=== PATIENT | male | born 1980 | race Caucasian/White ===

== ENCOUNTER 2019-01-29 16:57 | Inpatient (IN) | payer BC ==
[~2019-01-29] VITALS: Ht 177.8 cm; Wt 95.3 kg
[2019-01-29] MEDS ORDERED: KETOROLAC TROMETHAMINE 30 MG/ML VIAL IV ONE (17:13)
[2019-01-29] MEDS ORDERED: SODIUM CHLORIDE 0.9% 1000ML 1,000 ML IV ONE (17:15)
[2019-01-29] MEDS ORDERED: KETOROLAC TROMETHAMINE 30 MG/ML VIAL ONE (17:21)
[2019-01-29 17:32] LABS: BASOPHILS % 0.3 % (0.0-1.0); EOSINOPHILS % 0.1 % (0.0-6.0); HEMATOCRIT 42.7 % (38.2-49.6); HEMOGLOBIN 15.3 g/dL (14.0-18.0); LYMPHOCYTES # (AUTO) 0.9 (1.0-3.2); LYMPHOCYTES % 8.7 % (18.0-39.1); MEAN CORPUSCULAR HEMOGLOBIN 29.7 pg (28-32); MEAN CORPUSCULAR HGB CONC 35.8 g/dL (31-35); MEAN CORPUSCULAR VOLUME 82.8 fL (81-99); MONOCYTES # (AUTO) 0.6 (0.2-0.8); MONOCYTES % 6.3 % (4.4-11.3); NEUTROPHILS # (AUTO) 8.3 (2.1-6.9); NEUTROPHILS % 84.2 % (38.7-80.0); PLATELET COUNT 246 x10e3/uL (140-360); RED BLOOD COUNT 5.16 x10e6/uL (4.3-5.7); RED CELL DISTRIBUTION WIDTH 12.6 % (11.7-14.4)
[2019-01-29 17:36] LABS: BILIRUBIN,URINE NEGATIVE (NEGATIVE); CLARITY,URINE SL CLOUDY (CLEAR); COLOR,URINE YELLOW (YELLOW); KETONES,URINE 1+ (NEGATIVE); LEUKOCYTE ESTERASE ,URINE NEGATIVE (NEGATIVE); NITRITE,URINE NEGATIVE (NEGATIVE); PROTEIN,URINE DIPSTICK TRACE (NEGATIVE); URINE UROBILINOGEN 0.2 mg/dL (0.2 - 1)
[2019-01-29 17:48] LABS: AMORPHOUS SEDIMENT,URINE MODERATE (FEW); ANION GAP 13.5 mmol/L (8-16); BACTERIA,URINE MODERATE /HPF; BLOOD UREA NITROGEN 13 mg/dL (7-26); BUN/CREATININE RATIO 11 (6-25); CALCIUM 9.9 mg/dL (8.4-10.2); CARBON DIOXIDE 25 mmol/L (22-29); CHLORIDE 101 mmol/L (98-107); CREATININE, SERUM 1.21 mg/dL (0.72-1.25); EPITHELIAL CELLS,URINE FEW /LPF; EST GLOMERULAR FILTRATION RATE > 60 ML/MIN (60-); GLUCOSE 95 mg/dL (74-118); POTASSIUM 3.5 mmol/L (3.5-5.1); SODIUM 136 mmol/L (136-145); WBC,URINE (MAN) 0-5 /HPF (0-5)
--- NOTE | 2019-01-29 20:08 | Diagnostic Imaging Report ---
EXAM: CT Abdomen and Pelvis WITHOUT contrast INDICATION: ^kidney stone ^[id number] ^1810 COMPARISON: None. TECHNIQUE: Abdomen and pelvis were scanned utilizing a multidetector helical scanner from the lung base to the pubic symphysis without administration of IV contrast. Absence of intravenous contrast decreases sensitivity for detection of focal lesions and vascular pathology. Coronal and sagittal reformations were obtained. Renal stone protocol was performed. Dose modulation, iterative reconstruction, and/or weight based adjustment of the mA/kV was utilized to reduce the radiation dose to as low as reasonably achievable. IV CONTRAST: None. ORAL CONTRAST: None RADIATION DOSE: Total DLP: 727.43 mGy*cm Estimated effective dose: (DLP x 0.015 x size factor) mSv COMPLICATIONS: None FINDINGS: LINES and TUBES: None. LOWER THORAX: Lung bases clear. Heart size normal. HEPATOBILIARY: No focal hepatic lesions. No biliary ductal dilation. GALLBLADDER: No radio-opaque stones or sludge. No wall thickening. SPLEEN: No splenomegaly. PANCREAS: No focal masses or ductal dilatation. ADRENALS: No adrenal nodules KIDNEYS/URETERS: There is mild left hydronephrosis and hydroureter down to a 5 mm calculus in the distal left ureter about 2 cm above the UVJ. No intrarenal calculi are seen. No contour deforming cystic or solid mass lesions. There is mild perinephric stranding on the left. GI TRACT: No abnormal distention, wall thickening, or evidence of bowel obstruction. Appendix is normal. PELVIC ORGANS/BLADDER: Urinary bladder appears unremarkable. The prostate is mildly prominent measuring 5.7 cm transversely. Prostatic calcifications are seen. No discrete abnormal mass or fluid collection in the pelvis. LYMPH NODES: No dominant lymph node mass is seen in the abdomen, retroperitoneum or pelvis. A small rounded mass adjacent to the spleen is compatible with a splenule. VESSELS: Unenhanced aortoiliac vessels unremarkable. PERITONEUM / RETROPERITONEUM: No pneumoperitoneum or generalized ascites. BONES: No acute or suspicious bony lesions. SOFT TISSUES: Superficial surrounding soft tissue shows apparent lateral femoral hernias containing fat, larger on the right. IMPRESSION: 1. 5 mm partially obstructing calculus in the distal left ureter producing mild left hydronephrosis and hydroureter and stranding about the left kidney. Staff: Waldemar Signed by: Dr. Lucas Medeiros M.D. on 01/29/2019 8:04 PM
[2019-01-29] MEDS ORDERED: HYDROMORPHONE 1MG/1ML INJ IV PRN (20:30)
[2019-01-29] MEDS ORDERED: ONDANSETRON HCL INJ 2MG/ML 2ML 2 MG/ML VIAL IV PRN (20:30)
[2019-01-29] MEDS ORDERED: CEFTRIAXONE SOD 1 GM/NS 50 ML 50 ML IV ONE (20:30)
--- OUTSIDE RECORDS SUMMARY | 2019-01-29 21:16 | XMS REPORT ---
Author Author [facility] Address Unknown Phone Unavailable Care Team Providers Care Hospital Coordinator Name Role Phone Cadence LAZO Unavailable Unavailable Problems This patient has no known problems. Allergies, Adverse Reactions, Alerts This patient has no known allergies or adverse reactions. Medications This patient has no known medications. Results Test Description Test Time Test Comments Text Results Atomic Results Result Comments CT ABDOMEN/PELVIS WO 2019-01-29 19:55:[address] [address] Patient Name: BRUCE MORRELL MR #: [id number] : 1980 Age/Sex: 38/M Req #: [id number] Adm Physician: Ordered by: DESIREE ELIZALDE NP Report #: [id number] Location: ER Room/Bed: Procedure: [id number] CT/CT ABDOMEN/PELVIS WO Exam Date: 01/29/19 Exam Time: 1809 REPORT STATUS: Signed EXAM: CT Abdomen and Pelvis WITHOUT contrast INDICA TION: kidney stone [id number] COMPARISON: None. TECHNIQUE: Abdomen and pelvis were scanned utilizing a multidetector helical scanner from the lung base to the pubic symphysis without administration of IV contrast. Absence of intravenous contrast decreases sensitivity for detection of focal lesions and vascular pathology. Coronal and sagittal reformations were obtained. Renal stone protocol was performed. Dose modulation, iterative reconstruction, and/or weight based adjustment of the mA/kV was utilized to reduce the radiation dose to as low as reasonably achievable. IV CONTRAST: None. ORAL CONTRAST: None RADIATION DOSE: Total DLP: 727.43 mGy*cm Estimated effective dose: (DLP x 0.015 x size factor) mSv COMPLICATIONS: None FINDINGS: LINES and TUBES: None. LOWER THORAX: Lung bases clear. Heart size normal. HEPATOBILIARY: No focal hepatic lesions. No biliary ductal dilation. GALLBLADDER: No radio-opaque stones or sludge. No wall thickening. SPLEEN: No splenomegaly. PANCREAS: No focal masses or ductal dilatation. ADRENALS: No adrenal nodules KIDNEYS/URETERS: There is mild left hydronephrosis and hydroureter down to a 5 mm calculus in the distal left ureter about 2 cm above the UVJ. No intrarenal calculi are seen. No contour deforming cystic or solid mass lesions. There is mild perinephric stranding on the left. GI TRACT: No abnormal distention, wall thickening, or evidence of bowel obstruction. Appendix is normal. PELVIC ORGANS/BLADDER: Urinary bladder appears unremarkable. The prostate is mildly prominent measuring 5.7 cm transversely. Prostatic calcifications are seen. No discrete abnormal mass or fluid collection in the pelvis. LYMPH NODES: No dominant lymph node mass is seen in the abdomen, retroperitoneum or pelvis. A small rounded mass adjacent to the spleen is compatible with a splenule. VESSELS: Unenhanced aortoiliac vessels unremarkable. PERITONEUM / RETROPERITONEUM: No pneumoperitoneum or generalized ascites. BONES: No acute or suspicious bony lesions. SOFT TISSUES: Superficial surrounding soft tissue shows apparent lateral femoral hernias containing fat, larger on the right. IMPRESSION: 1. 5 mm partially obstructing calcul us in the distal left ureter producing mild left hydronephrosis and hydroureter and stranding about the left kidney. Staff: Waldemar Signed by: Dr. Jamaica Mari M.D. on 01/29/2019 8:04 PM Dictated By: JAMAICA MARI MD 03 Transcribed By: ORA on 01/29/192003 COPY TO: DESIREE ELIZALDE NP
[2019-01-29 21:18] VITALS: BP 147/89
--- NOTE | 2019-01-29 21:18 | NUR ---
PT ARRIVED ON THE UNIT VIA AMBULATORY AT 2117. PT IS A&OX3. RESPIRATION IS EVEN AND UNLABORED, NO DISTRESS NOTED. PT ORIENTED TO THE ROOM, BED IN LOWEST POSITION, LOCKED, AND CALL LIGHT WITHIN REACH. ADMISSION AND HEAD TO TOE ASSESSMENT COMPLETE. WILL CONTINUE TO MONITOR.
[2019-01-29] MEDS: SODIUM CHLORIDE 0.9% 1000ML 1,000 ML IV SCH (22:29)
[2019-01-30] VITALS (10 sets, daily range): BP systolic 118–138; BP diastolic 69–87
[2019-01-30 05:51] LABS: BASOPHILS % 0.7 % (0.0-1.0); EOSINOPHILS # (AUTO) 0.1 (0.0-0.4); HEMATOCRIT 39.2 % (38.2-49.6); HEMOGLOBIN 13.5 g/dL (14.0-18.0); LYMPHOCYTES # (AUTO) 1.5 (1.0-3.2); LYMPHOCYTES % 28.1 % (18.0-39.1); MEAN CORPUSCULAR HEMOGLOBIN 29.3 pg (28-32); MEAN CORPUSCULAR HGB CONC 34.4 g/dL (31-35); MONOCYTES # (AUTO) 0.4 (0.2-0.8); MONOCYTES % 8.1 % (4.4-11.3); NEUTROPHILS # (AUTO) 3.3 (2.1-6.9); NEUTROPHILS % 60.7 % (38.7-80.0); PLATELET COUNT 207 x10e3/uL (140-360); RED BLOOD COUNT 4.61 x10e6/uL (4.3-5.7); RED CELL DISTRIBUTION WIDTH 12.8 % (11.7-14.4)
[2019-01-30] MEDS: SODIUM CHLORIDE 0.9% 1000ML 1,000 ML IV SCH ×3 (06:06→21:42)
[2019-01-30 06:10] LABS: ANION GAP 12.8 mmol/L (8-16); BLOOD UREA NITROGEN 11 mg/dL (7-26); BUN/CREATININE RATIO 12 (6-25); CARBON DIOXIDE 26 mmol/L (22-29); CHLORIDE 108 mmol/L (98-107); CREATININE, SERUM 0.91 mg/dL (0.72-1.25); EST GLOMERULAR FILTRATION RATE > 60 ML/MIN (60-); GLUCOSE 89 mg/dL (74-118); POTASSIUM 3.8 mmol/L (3.5-5.1); SODIUM 143 mmol/L (136-145)
--- NOTE | 2019-01-30 07:00 | NUR ---
RECEIVED AM REPORT FROM NURSE, MORNING ROUNDS DONE. PT IS ALERT RESTING IN BED, NO S/S OF DISTRESS. CALL LIGHT WITHIN REACH, INSTRUCTED TO CALL NURSE FOR HELP. IS AT THE BEDSIDE. Addendum: 01/30/19 at 0728 by Julieta Padilla RN PT IS SLEEPING, NO S/S OF DISTRESS. CALL LIGHT IS WITHIN REACH, SIDE RAILS UP. IVF ARE RUNNING AT 125/HR IN L AC. SITE IS ASYMPTOMATIC
--- NOTE | 2019-01-30 12:49 | Consultation ---
DATE OF CONSULTATION: 01/30/2019 Urologic Consultation Note Consultation is called by the emergency room, Dr. Aristides Mackay. CHIEF COMPLAINT/REASON FOR CONSULTATION: Left ureteral calculus. HISTORY OF PRESENT ILLNESS: Mr. Sanchez is a 38-year-old male, patient of mine, with a 5 mm obstructing left ureteral calculus with a failed trial passage and failed outpatient management. His pain has been uncontrollable by oral narcotics. He presents to the emergency room for pain control. Denied fevers. No chills no nausea or vomiting. PAST MEDICAL HISTORY: As above. MEDICATIONS: Please see MAR. ALLERGIES: NKDA. SOCIAL HISTORY: Denied smoking or drinking. FAMILY HISTORY: Denied urologic stones or malignancies. REVIEW OF SYSTEMS: Noncontributory other than problems mentioned above for 12 organ systems. PHYSICAL EXAMINATION: GENERAL: Middle-aged male, in no distress. VITAL SIGNS: Temperature 97, pulse 70, respirations 20, and blood pressure 118/69. HEENT: Sclerae are anicteric. NECK: Supple. BACK: Without costovertebral tenderness bilaterally. ABDOMEN: Soft, it is nontender, it is nondistended. There is no palpable mass, no palpable hernias, no palpable lymphadenopathy. : Normal male external genitalia. EXTREMITIES: No edema. Moves all four extremities. PSYCH: Alert and mood appropriate. SKIN: Intact. Normal color. PERTINENT LABORATORY DATA: CT scan revealing a 5 mm left ureterovesical junction calculus with hydronephrosis. Urinalysis, 5-10 reds, 0 whites, positive bacteria. Hemoglobin 13, hematocrit 39, platelet count 207,000, and white cell count 5000. Sodium 136, potassium 3.5, chloride 101, bicarb 25, BUN 13, creatinine 1.2, and glucose 95. IMPRESSION: 1. Left ureteral calculus. 2. Left hydronephrosis. 3. Microscopic hematuria. 4. Anemia. 5. Hypokalemia. 6. Renal colic. PLAN: We would employ a brief trial of passage. Should this fail, the patient will likely need stenting versus ureteroscopy. Thank you for allowing me to participate in the care of your patient. We will be happy to follow along with you. MD TAWNYA Hays/MODL :35:12 /[id number] cc: Aristides Mackay MD
--- NOTE | 2019-01-30 14:59 | Diagnostic Imaging Report ---
Exam: KUB - 2 views Clinical History: Renal calculi Comparison: CT abdomen pelvis of 01/29/2019 Findings: 5 mm calcific density in the left pelvis likely corresponds with the 5 mm distal ureteral calculus seen on the CT of 01/29/2019. No other radiographically apparent renal calculi. Nonobstructive bowel gas pattern. The osseous structures appear unremarkable. Impression: 5 mm calcific density in the left pelvis likely corresponds with the 5 mm distal ureteral calculus seen on the CT of 01/29/2019. Signed by: Bree Camacho MD on 01/30/2019 2:56 PM
--- NOTE | 2019-01-30 15:30 | NUR ---
Visit made by the Spiritual Care Department Pastoral Visitor, Gemini Rizvi. PV provided pastoral presence, prayer, hospitality, and supportive listening. Pastoral Visitor informed pt/family of the scope of [employer] and availability. [employer] Vehicle Officer Spiritual Care Department O: [phone] Pager: [phone] ([phone] number calling from)
--- NOTE | 2019-01-30 16:45 | NUR ---
Nutrition Screen Note RD Recommendation for Physician: -Continue diet as ordered Plan of Care: RD following, monitoring for tolerance and adequacy Nutrition reason for involvement: Nutrition Risk Trigger MST Primary Diagnose(s): Left ureteral calculus. PMH: none indicated Ht: 70in Wt: 210lb BMI: 30.1kg/m2 IBW: 166lb +/- 10% RD Assessment: (01/30) Chart reviewed. Labs and meds reviewed. 38yo M, who was admitted for left ureteral calculus. Visited pt in the room. Pt reported good appetite prior and during hospital stay. Pt denied any nausea or vomiting. No chewing or swallowing difficulty noted. Stable weight. Current diet is appropriate and adequate. Current Diet: regular diet Malnutrition Evaluation (01/30/2019) The patient does not meet criteria for a specified degree of malnutrition at this time. Will re-evaluate at follow-up as appropriate. Diet Education Needs Assessment: Diet education not indicated. Nutrition Care Level: low Signed: Marlys Painting, MS, RD, LD
--- NOTE | 2019-01-30 19:08 | NUR ---
PT IS RESTING IN BED. RESPIRATION IS EVEN AND UNLABORED, NO DISTRESS NOTED. BED IN THE LOWEST POSITION, LOCKED, AND CALL LIGHT WITHIN REACH. WILL CONTINUE TO MONITOR.
[2019-01-31] VITALS (9 sets, daily range): BP systolic 113–151; BP diastolic 75–90
[2019-01-31] MEDS: SODIUM CHLORIDE 0.9% 1000ML 1,000 ML IV SCH ×2 (05:45→16:59)
--- NOTE | 2019-01-31 06:50 | NUR ---
Received patient lying in bed with eyes open. Alert and oriented x3. Respiration even and unlabored without SOB. Denies pain. Call light within reach.
[2019-01-31] MEDS ORDERED: IOPAMIDOL 610MG/1ML 300 MG/ML VIAL IV ONE (11:47)
--- NOTE | 2019-01-31 11:55 | NUR ---
IV LINE TO LEFT AC LEAKING, DCD LINE WITH TIP INTACT, PRESSURE APPLIED TO SITE, NO BLEEDING NOTED.
--- NOTE | 2019-01-31 13:01 | NUR ---
PATIENT OFF THE UNIT FOR PROCEDURE AT THIS TIME.
[2019-01-31] MEDS ORDERED: PROPOFOL IV EMULSION 10 MG/ML 20 ML VIAL ONE (14:19)
[2019-01-31] MEDS ORDERED: SEVOFLURANE INHAL SOLN 250 ML PEN BTL ONE (14:19)
[2019-01-31] MEDS ORDERED: LIDOCAINE HCL 2% LOCAL INJ 5 ML SDV VIAL INJ ONE (14:19)
[2019-01-31] MEDS ORDERED: ONDANSETRON HCL INJ 2MG/ML 2ML 2 MG/ML VIAL ONE (14:19)
[2019-01-31] MEDS ORDERED: DEXAMETHASONE SOD PHOS INJ 4 MG/ML VIAL ONE (14:19)
--- NOTE | 2019-01-31 14:48 | NUR ---
Received patient transported back from OR. Patient stable, alert and oriented. Respiration even and unlabored without SOB. Call light within reach.
[2019-01-31] MEDS ORDERED: MIDAZOLAM HCL 2 MG/2 ML VIAL ONE (15:16)
[2019-01-31] MEDS ORDERED: FENTANYL CITRATE/PF 100MCG/2 ML INJ ONE (15:16)
--- NOTE | 2019-01-31 19:26 | NUR ---
Patient awake, alert. Respiration even and unlabored. Report given to deputy commissioner. Call light in reach.
--- NOTE | 2019-01-31 19:27 | Operative Report ---
DATE OF PROCEDURE: 01/31/2019 SURGEON: Live Choudhary MD PREOPERATIVE DIAGNOSES: Left ureteral calculus, left hydronephrosis, hematuria. POSTOPERATIVE DIAGNOSES: Left ureteral calculus, left hydronephrosis, hematuria with left ureteral stricture and urethral stricture. PROCEDURES: 1. Cystourethroscopy with urethral calibration and dilation of stricture (entirely separate procedure for urethral stricture disease). 2. Cystourethroscopy with right ureteral catheterization and right retrograde pyelogram (entirely separate procedure for microscopic hematuria). 3. Left-sided ureteroscopy with dilation of ureteral stricture (entirely separate procedure for left ureteral stricture). 4. Cystoscopy insertion of left indwelling stent (entirely separate procedure for diagnosis of left hydronephrosis). 5. Supervision of fluoroscopy for ureteroscopy and dilation portions and supervision of fluoroscopy for stent insertion portions). 6. Interpretation of retrograde pyelography. ANESTHESIA: General. ESTIMATED BLOOD LOSS: Minimal. COMPLICATION: None. INDICATIONS: Mr. Sanchez is a very pleasant 38-year-old male patient with a history of a left ureteral calculi and I had a long discussion about alternatives, risks, and benefits of doing nothing, shock close wave lithotripsy, ureteroscopy, percutaneous surgery or open surgery. He voiced understanding of the options, alternatives, risks, and benefits and elected to proceed. PROCEDURE IN DETAIL: After informed consent was obtained, the patient was taken to the operative suite, placed supine on the operating table. He underwent general anesthesia by the Anesthesia Service. He was placed in the dorsal lithotomy position, sterilely prepped and draped in sterile fashion for cystoscopy. A 21-Belizean cystoscope was inserted per urethra. There was a bulbar urethral stricture, calibrated at approximately 18-Belizean, dilated with the scope, there was trilobar prostatic hypertrophy. Panendoscopy of bladder revealed trabeculation. No tumors. No stones. Both ureteral orifices were in normal anatomic location and position, and were seen to efflux clear urine. Bilateral retrograde pyelogram was performed. On the right was normal and left revealed a very dense blockage with a 5 mm distal ureteral calculus with moderate difficulty. A guidewire was inserted in left side. A 5-Belizean open-ended catheter was advanced over this. A brisk hydronephrotic drip was seen. At this time, a guidewire was placed. Ureteroscope was advanced until distal impacted, area of the stone could be seen and was scarred down and despite multiple times dilate and physician practice administrator avulsion, we terminated this procedure. Utilizing a graduated 7-Belizean stent, a 7 x 28 cm stent was deployed with a coil in the renal pelvis and a coil in the bladder after first dilating the stricture, return for definitive management of stone. The bladder was drained. The patient was awakened from anesthesia and transported to the recovery room in excellent condition. Supervision of fluoroscopy and interpretation of retrograde pyelography: I was present for the entire procedure and supervised fluoroscopy. There was no radiologist present. Attention was turned to the left and right ureteral orifices, which were catheterized with 5-Belizean open-ended catheters. On the right side it was delicate ureter, delicate pelvocaliceal systems. On the left side distal 5 x 6 mm ureteral calculus proximal hydronephrosis, ureteral stricture and postoperative views on left side revealed stent in adequate position. MD TAWNYA Hays/DIETER /[id number]
--- NOTE | 2019-01-31 23:21 | NUR ---
PATIENT ARRIVED FROM MED-SURG 3 ROOM 287 TO ROOM 107 ON WHEELCHAIR. SAFELY TRANSFERRED FROM TO BED. IV NS CONTINUES AT 125 ML/HR. PATIENT IS A/0X4 WITH NO PAIN EXCEPT DURING VOIDING. THE PATIENT IS TO BE D/C TOMORROW AFTER MEDICAL MANAGEMENT CLEARANCE.
[2019-02-01] MEDS: SODIUM CHLORIDE 0.9% 1000ML 1,000 ML IV SCH ×2 (00:13→04:22)
[2019-02-01 04:43] VITALS: BP 121/68
[2019-02-01] MEDS ORDERED: TYLENOL WITH C1 EACH PO (07:11)
[2019-02-01 07:42] VITALS: BP 135/78
--- NOTE | 2019-02-01 07:42 | NUR ---
MD NAJERA AND RASHEL DC PT DISCHARGE INSTRUCTIONS AND PRESCRIPTIONS GIVEN. PT VERBALIZED UNDERSTANDING IV DC PRESSURE DRESSING APPLIED AND TAPED PT IS NOW WAITING FOR RIDE HOME
--- NOTE | 2019-02-02 07:56 | Discharge Summary ---
DISCHARGE DIAGNOSES: 1. Left kidney stone 5 mm, status post stent. 2. Renal colic. HISTORY OF PRESENT ILLNESS AND HOSPITAL COURSE: See hospital chart for full details. The patient is a gentleman, who presented with left renal colic pain, where he was found to have a 5 mm obstructing kidney stone with some hydronephrosis. He was seen by Dr. Choudhary, who gave a chance of voiding past, but unfortunately the patient was not able to pass the stones. He went to the OR by Dr. Choudhary, who put a stent in place when he was not able to get the stone out. So, after the stent was placed, the patient did well postoperatively with minimal pain. He was discharged home to follow up with Dr. Choudhary in 1 to 2 weeks to finish up the stone removal as an outpatient. Please see hospital chart for full details. MD CHRISTIAN Stanton/DIETER /[id number]
[2019-02-08] MEDS ORDERED: MYRBETRIQ50 MG PO (10:09)
== END 2019-02-01 08:46 | disposition home or self-care (01) | DRG 661 ==
LOC: ER 16:57 → ERHOLD 21:13 → MED/SURG3 21:19 → MED/SURG 01-31 22:49
PROVIDERS: ADMIT Internal Medicine; ATTEND Internal Medicine
PROC: BT141ZZ Fluoroscopy of Kidneys, Ureters and Bladder using Low Osmolar Contrast (ICD-10-PCS; 2019-01-31)
PROC: 0T7D8ZZ Dilation of Urethra, Via Natural or Artificial Opening Endoscopic (ICD-10-PCS; 2019-01-31)
PROC: 0T768ZZ Dilation of Right Ureter, Via Natural or Artificial Opening Endoscopic (ICD-10-PCS; principal; 2019-01-31 14:00)
PROC: 0T778DZ Dilation of Left Ureter with Intraluminal Device, Via Natural or Artificial Opening Endoscopic (ICD-10-PCS; 2019-01-31 14:00)
DX: N13.2 Hydronephrosis with renal and ureteral calculous obstruction (principal); D64.9 Anemia, unspecified; E87.6 Hypokalemia; R31.29 Other microscopic hematuria; N35.919 Unspecified urethral stricture, male, unspecified site; F41.9 Anxiety disorder, unspecified
CPT/HCPCS: 36415; 74018; 74176; 74420; 80048; 81001; 85025; 99284; C1758; C2617; J0696; J1100; J1170; J1885; J2001; J2250; J2405; J3010; J7030

== ENCOUNTER → 2019-02-09 | Day surgery (SDC) | payer BC ==
[~2019-02-09] MED LIST: CEFTRIAXONE SOD 1 GM/NS 50 ML 50 ML IV ONE; DEXAMETHASONE SOD PHOS INJ 4 MG/ML VIAL ONE; FENTANYL CITRATE/PF 100MCG/2 ML INJ ONE; IOPAMIDOL 610MG/1ML 300 MG/ML VIAL IV ONE; LIDOCAINE HCL 2% LOCAL INJ 5 ML SDV VIAL INJ ONE; MIDAZOLAM HCL 2 MG/2 ML VIAL ONE; MYRBETRIQ50 MG PO; ONDANSETRON HCL INJ 2MG/ML 2ML 2 MG/ML VIAL ONE; PROPOFOL IV EMULSION 10 MG/ML 20 ML VIAL ONE; SEVOFLURANE INHAL SOLN 250 ML PEN BTL ONE; TYLENOL WITH C1 EACH PO
[2019-02-09 10:15] VITALS: BP 128/86
--- NOTE | 2019-02-09 13:46 | Operative Report ---
DATE OF PROCEDURE: 02/09/2019 SURGEON: Live Choudhary MD PREOPERATIVE DIAGNOSES: 1. Indwelling left ureteral stent. 2. Left ureteral calculus. POSTOPERATIVE DIAGNOSES: 1. Indwelling left ureteral stent. 2. Left ureteral calculus. PROCEDURES: 1. Cystourethroscopy with complicated left ureteral stent removal (entirely separate procedure for complicated secondary to BPH). 2. Left-sided ureteroscopy with laser lithotripsy (entirely separate procedure for ureteral stricture and left ureteral calculus). 3. Left-sided ureteroscopy with stone extraction (entirely separate procedure with explicit purpose of sending the stones for analysis, not required for laser lithotripsy). 4. Supervision of fluoroscopy for ureteroscopy portion and stent removal portion. ANESTHESIA: General. ESTIMATED BLOOD LOSS: Minimal. COMPLICATIONS: None. INDICATIONS: Mr. Sanchez is a very pleasant 38-year-old male patient with a history of left stent placement for a 6 mm distal ureteral calculus. He and I had a long discussion about alternatives, risks, and benefits and elected to proceed with ureteroscopy and laser lithotripsy. PROCEDURE IN DETAIL: After informed consent was obtained, the patient was taken to the operative suite, placed supine on the operating table, underwent general anesthesia by Anesthesia Service, was placed in dorsal lithotomy position, and sterilely prepped and draped for cystoscopy. A 22.5-Icelandic cystoscope was inserted per urethra. There was pretty severe trilobar prostatic hypertrophy. Panendoscopy of bladder revealed no tumors and encrusted left ureteral stent was seen extending out of the left ureteral orfice. A guidewire was inserted through the ureteral orifice and the encrusted stent was removed. The ureteroscope was advanced to the level of the stone in the distal ureter. Utilizing a 365 micron laser fiber, the stone was dusted until they are approximately 1 to 2 mm fragments left. This was basket extracted and photographed, which was taken with explicit purpose for sending the stone for analysis, not required for laser lithotripsy. At this time with no other stones seen under fluoroscopy, the bladder was drained. The patient was awakened from anesthesia and transferred to the recovery room in excellent condition with no untoward effects noted. Supervision of fluoroscopy: I was present for the entire procedure and supervised fluoroscopy for both the ureteroscopic portion as well as stent removal portion. There was no radiologist present. MD TAWNYA Hays/DIETER /[id number] MTDWong
== END | disposition home or self-care (01) ==
LOC: OR 06:26
PROVIDERS: ATTEND Urology
DX: Z46.6 Encounter for fitting and adjustment of urinary device (principal); N20.2 Calculus of kidney with calculus of ureter; N39.0 Urinary tract infection, site not specified; R31.0 Gross hematuria; I10 Essential (primary) hypertension; Z87.442 Personal history of urinary calculi
CPT/HCPCS: 52353; 74420; 88300; 93005; C1758; J0696; J1100; J2001; J2250; J2405; J3010

== ENCOUNTER → 2019-02-27 | Outpatient (CLI) | payer BC ==
[~2019-02-27] MED LIST changes: -CEFTRIAXONE SOD 1 GM/NS 50 ML 50 ML IV ONE; -DEXAMETHASONE SOD PHOS INJ 4 MG/ML VIAL ONE; -FENTANYL CITRATE/PF 100MCG/2 ML INJ ONE; -IOPAMIDOL 610MG/1ML 300 MG/ML VIAL IV ONE; -LIDOCAINE HCL 2% LOCAL INJ 5 ML SDV VIAL INJ ONE; -MIDAZOLAM HCL 2 MG/2 ML VIAL ONE; -ONDANSETRON HCL INJ 2MG/ML 2ML 2 MG/ML VIAL ONE; -PROPOFOL IV EMULSION 10 MG/ML 20 ML VIAL ONE; -SEVOFLURANE INHAL SOLN 250 ML PEN BTL ONE
--- NOTE | 2019-02-27 17:59 | Diagnostic Imaging Report ---
Abdomen, 1 view. History: Follow-up left stone. Comparison: 01/30/2019. Findings: Air is scattered throughout nondilated small and large bowel. Calcification previously seen in the left pelvis is no longer identified. There are no masses. The osseous structures are intact. IMPRESSION: Non-specific bowel gas pattern. Left-sided stone no longer seen. Signed by: Nima Dillon on 02/27/2019 5:56 PM
== END ==
LOC: RAD 17:02
PROVIDERS: ATTEND Urology
DX: N20.1 Calculus of ureter (principal)
CPT/HCPCS: 74018

== ENCOUNTER → 2019-05-30 | Outpatient (CLI) | payer BC ==
--- NOTE | 2019-05-30 17:51 | Diagnostic Imaging Report ---
CT of the abdomen and pelvis, without contrast. History: History of urinary stone. Comparison: CT abdomen/pelvis without contrast from 01/29/2019. Technique: Multidetector CT scanning of the abdomen and pelvis was performed from the level of the lung bases to the inferior pubic rami after intravenous and oral administration of contrast. Coronal and sagittal multiplanar reformations were obtained. RADIATION DOSE: Total DLP: 556.70 mGy*cm Dose modulation, iterative reconstruction, and/or weight based adjustment of the mA/kV was utilized to reduce the radiation dose to as low as reasonably achievable. FINDINGS: The visualized lungs are clear. The imaged portion of the heart demonstrates no significant abnormalities. The liver is normal in size and attenuation on this noncontrast enhanced examination. The gallbladder is unremarkable. There is no biliary ductal dilatation. The stomach, spleen, pancreas, and bilateral adrenal glands demonstrate unremarkable noncontrast appearance. Incidentally noted is a splenule adjacent to the spleen. The kidneys are normal in size and location. There is no evidence for nephrolithiasis or hydronephrosis. The ureters are normal course and caliber. The previously identified distal left ureteral stone is no longer present. The urinary bladder demonstrates no significant abnormalities. The prostate is mildly prominent and contains calcifications, unchanged. The abdominal aorta is normal course and caliber. The IVC is normal in caliber. Please note evaluation the bowel is limited without the use of enteric contrast material. The visualized loops of small and large bowel demonstrate no evidence of obstruction or inflammation. The appendix is visualized and appears unremarkable. There is no ascites or intraperitoneal free air. No abnormally enlarged lymph nodes are identified within the abdomen or pelvis. Small bilateral fat-containing hernias noted. The osseous structures demonstrate no evidence for acute fracture or destructive process. The extraperitoneal soft tissues are unremarkable. IMPRESSION: No acute abdominopelvic process identified, specifically no evidence for nephrolithiasis or obstructive uropathy. Signed by: Dr. Fazal Mcfadden MD on 05/30/2019 5:48 PM
== END ==
LOC: CT 16:38
PROVIDERS: ATTEND Urology
DX: N20.0 Calculus of kidney (principal)
CPT/HCPCS: 74176

== ENCOUNTER → 2019-09-05 | Outpatient (CLI) | payer BC ==
--- NOTE | 2019-09-05 17:15 | Diagnostic Imaging Report ---
Exam: KUB - 2 views Indication: Renal calculus Comparison: CT abdomen pelvis of 05/30/2019, KUB of 02/27/2019 Findings: Nonobstructive bowel gas pattern. No evidence of free intraperitoneal air. No evidence of abnormal calcification. No acute bony abnormality. Impression: No radiographically apparent renal calculi. Signed by: Bree Camacho MD on 09/05/2019 5:12 PM
== END ==
LOC: RAD 16:20
PROVIDERS: ATTEND Urology
DX: N20.0 Calculus of kidney (principal)
CPT/HCPCS: 74018

== ENCOUNTER → 2020-05-30 | Outpatient (CLI) | payer BC | LOC: RAD 16:34 | PROVIDERS: ATTEND Urology | DX: N20.0 Calculus of kidney (principal) | CPT/HCPCS: 74018 ==

== ENCOUNTER → 2020-12-11 | Outpatient (CLI) | payer BC | LOC: RAD 15:55 | PROVIDERS: ATTEND Urology | DX: N20.0 Calculus of kidney (principal) | CPT/HCPCS: 74018 ==

== ENCOUNTER → 2024-07-27 | Outpatient (REF) | payer OTHER | LOC: RAD 11:32 | PROVIDERS: ATTEND Urology | DX: N20.0 Calculus of kidney (principal) | CPT/HCPCS: 74018 ==